=== PATIENT | male | born 1975 | race African-American/Black ===

== ENCOUNTER 2022-07-13 21:07 | Emergency (ER) | payer BC ==
[~2022-07-13] VITALS: Ht 182.9 cm; Wt 172.4 kg
[2022-07-13] MEDS ORDERED: ACETAMINOPHEN 325 MG TAB PO ONE (21:45)
[2022-07-13] MEDS ORDERED: PAXLOVID 300-11 EACH PO (22:52)
== END 2022-07-13 23:32 | disposition home or self-care (01) ==
LOC: EDBD 21:07 → ER 21:15
DX: R50.9 Fever, unspecified (principal); U07.1 COVID-19; I10 Essential (primary) hypertension; E11.9 Type 2 diabetes mellitus without complications; R05.9 Cough, unspecified
CPT/HCPCS: 71046; 99283; U0002

== ENCOUNTER 2022-07-16 12:23 | Inpatient (IN) | payer BC ==
[~2022-07-16] VITALS: Ht 182.9 cm; Wt 174.2 kg
[~2022-07-16 12:23] MED LIST: PAXLOVID 300-11 EACH PO
[2022-07-16] MEDS ORDERED: SODIUM CHLORIDE 0.9% 1000ML 1,000 ML IV STA (13:06)
[2022-07-16 13:22] LABS: BASOPHILS # (AUTO) 0.1 (0.0-0.1); BASOPHILS % 0.7 % (0.0-1.0); HEMATOCRIT 38.5 % (38.2-49.6); HEMOGLOBIN 12.6 g/dL (14.0-18.0); LYMPHOCYTES # (AUTO) 0.3 (1.0-3.2); LYMPHOCYTES % 2.2 % (18.0-39.1); MEAN CORPUSCULAR HEMOGLOBIN 25.5 pg (28-32); MEAN CORPUSCULAR HGB CONC 32.7 g/dL (31-35); MEAN CORPUSCULAR VOLUME 77.9 fL (81-99); MONOCYTES % 8.2 % (4.4-11.3); NEUTROPHILS # (AUTO) 10.7 (2.1-6.9); NEUTROPHILS % 88.4 % (38.7-80.0); PLATELET COUNT 168 x10e3/uL (140-360); RED BLOOD COUNT 4.94 x10e6/uL (4.3-5.7); RED CELL DISTRIBUTION WIDTH 14.8 % (11.7-14.4)
[2022-07-16 13:36] LABS: INR 1.62; PROTHROMBIN TIME 19.4 seconds (11.9-14.5)
[2022-07-16 13:37] LABS: PARTIAL THROMBOPLASTIN TIME 42.3 seconds (23.8-35.5)
[2022-07-16 13:49] LABS: ALBUMIN 2.6 g/dL (3.5-5.0); ALBUMIN/GLOBULIN RATIO 0.4 (0.8-2.0); ANION GAP 17.5 mmol/L (8-16); CALCIUM 9.5 mg/dL (8.4-10.2); CREATININE, SERUM 0.99 mg/dL (0.72-1.25); MAGNESIUM 1.9 MG/DL (1.3-2.1); POTASSIUM 3.5 mmol/L (3.5-5.1)
[2022-07-16 13:55] LABS: CREATINE KINASE MB 0.5 ng/mL (0-5.0)
[2022-07-16 14:37] LABS: ABG HCO3 27 mmol/L (22-26); ABG PCO2 40 mmHg (35-45); ABG PH 7.44 (7.35-7.45); ABG PO2 67 mmHg (80-105); ABG TCO2 28
[2022-07-16] MEDS ORDERED: DEXTROSE 50% SYRINGE 50 ML IV PRN (15:15)
[2022-07-16] MEDS ORDERED: INSULIN REGULAR, HUMAN 100 UNIT/1 ML IV ONE (15:15)
[2022-07-16] MEDS ORDERED: ONDANSETRON HCL INJ 2MG/ML 2ML 2 MG/ML VIAL IV PRN (15:15)
[2022-07-16 15:17] LABS: BAND NEUTROPHILS % (MANUAL) 7 %; LYMPHOCYTES % (MANUAL) 1 % (19-48); MONOCYTES % (MANUAL) 8 % (3.4-9.0); NEUTROPHILS % (MANUAL) 84 % (40-74)
[2022-07-16 15:24] LABS: PLATELET ESTIMATE ADEQUATE; PLATELET MORPHOLOGY COMMENT NORMAL
[2022-07-16 15:45] LABS: INR 1.63; PARTIAL THROMBOPLASTIN TIME 40.6 seconds (23.8-35.5); PROTHROMBIN TIME 19.5 seconds (11.9-14.5)
[2022-07-16] MEDS: SODIUM CHLORIDE 0.9% 1000ML 1,000 ML IV SCH ×2 (15:46→23:30)
[2022-07-16] MEDS: DEXAMETHASONE SOD PHOS 10 MG/1 ML VIAL IV SCH (15:46)
[2022-07-16] MEDS ORDERED: POTASSIUM CHLORIDE 20MEQ/100ML 200 ML IV ONE ×2 (16:15→20:00)
[2022-07-16 16:28] LABS: SALICYLATE < 5.0 mg/dL (0-30)
[2022-07-16] MEDS ORDERED: REMDESIVIR 100MG 200 MG in SODIUM CHLORIDE 0.9% 100 ML IV ONE (16:30)
[2022-07-16] MEDS: ASCORBIC ACID 500 MG TAB PO SCH (16:33)
[2022-07-16] MEDS: ENOXAPARIN SOD INJ 40 MG/0.4 ML SYR SC SCH (16:33)
[2022-07-16] MEDS: INSULIN LISPRO 100 UNIT/1 ML 3ML VIAL SQ SCH ×2 (16:43→21:00)
[2022-07-16 17:15] LABS: MAGNESIUM 1.9 MG/DL (1.3-2.1)
[2022-07-16 17:25] LABS: HIV 1&2 AB SCREEN NON-REACTIVE (NONREACTIVE)
[2022-07-16 17:35] LABS: THYROID STIMULATING HORMONE 0.535 uIU/mL (0.350-4.940)
[2022-07-16 18:50] LABS: AMPHETAMINES SCREEN,URINE NEGATIVE (NEGATIVE); BENZODIAZEPINES SCREEN,URINE NEGATIVE (NEGATIVE); PHENCYCLIDINE SCREEN,URINE NEGATIVE (NEGATIVE)
[2022-07-16 18:51] LABS: CLARITY,URINE CLEAR (CLEAR); COLOR,URINE YELLOW (YELLOW); LEUKOCYTE ESTERASE ,URINE NEGATIVE (NEGATIVE); NITRITE,URINE NEGATIVE (NEGATIVE)
[2022-07-16 18:52] LABS: KETONES,URINE 1+ (NEGATIVE); PROTEIN,URINE DIPSTICK >=300 (NEGATIVE)
[2022-07-16 19:06] LABS: BACTERIA,URINE MODERATE /HPF; EPITHELIAL CELLS,URINE FEW /LPF
[2022-07-16 19:27] LABS: CREATINE KINASE MB 0.7 ng/mL (0-5.0)
[2022-07-16 20:11] VITALS: BP 168/84
[2022-07-16 20:30] VITALS: BP 176/86
[2022-07-16 20:53] VITALS: BP 172/96
[2022-07-16 20:58] VITALS: BP 172/96
[2022-07-16] MEDS ORDERED: ZIPRASIDONE 20 MG VIAL IM STA (21:22)
[2022-07-16] MEDS ORDERED: LORAZEPAM 1 MG TAB PO PRN (21:30)
[2022-07-16 23:00] VITALS: BP 110/70
[2022-07-17] VITALS (20 sets, daily range): BP systolic 117–211; BP diastolic 46–165
[2022-07-17 06:40] LABS: BASOPHILS # (AUTO) 0.1 (0.0-0.1); BASOPHILS % 0.6 % (0.0-1.0); HEMATOCRIT 36.1 % (38.2-49.6); LYMPHOCYTES # (AUTO) 0.5 (1.0-3.2); LYMPHOCYTES % 3.6 % (18.0-39.1); MEAN CORPUSCULAR HEMOGLOBIN 25.7 pg (28-32); MEAN CORPUSCULAR HGB CONC 33.2 g/dL (31-35); MEAN CORPUSCULAR VOLUME 77.3 fL (81-99); MONOCYTES # (AUTO) 1.3 (0.2-0.8); NEUTROPHILS # (AUTO) 12.2 (2.1-6.9); NEUTROPHILS % 85.1 % (38.7-80.0); PLATELET COUNT 154 x10e3/uL (140-360); RED BLOOD COUNT 4.67 x10e6/uL (4.3-5.7); RED CELL DISTRIBUTION WIDTH 14.8 % (11.7-14.4)
[2022-07-17 07:01] LABS: INR 1.57
[2022-07-17 07:02] LABS: PARTIAL THROMBOPLASTIN TIME 42.5 seconds (23.8-35.5)
[2022-07-17] MEDS: SODIUM CHLORIDE 0.9% 1000ML 1,000 ML IV SCH ×3 (07:15→23:51)
[2022-07-17 07:19] LABS: CREATINE KINASE MB 0.6 ng/mL (0-5.0)
[2022-07-17] MEDS: INSULIN LISPRO 100 UNIT/1 ML 3ML VIAL SQ SCH ×4 (07:30→21:58)
[2022-07-17 07:55] LABS: ALBUMIN 2.2 g/dL (3.5-5.0); ALBUMIN/GLOBULIN RATIO 0.3 (0.8-2.0); ANION GAP 18.6 mmol/L (8-16); CALCIUM 9.3 mg/dL (8.4-10.2); CHOL/HDL RATIO 10.7 (3.9-4.7); CREATININE, SERUM 0.83 mg/dL (0.72-1.25); POTASSIUM 3.6 mmol/L (3.5-5.1)
[2022-07-17] MEDS: ZINC SULFATE 50 MG CAP PO SCH (09:00)
[2022-07-17] MEDS: ASCORBIC ACID 500 MG TAB PO SCH ×2 (09:00→16:46)
[2022-07-17] MEDS: DEXAMETHASONE SOD PHOS 10 MG/1 ML VIAL IV SCH (09:13)
[2022-07-17] MEDS: HYDRALAZINE HCL 20 MG/ML VIAL IV PRN ×2 (09:14→17:19)
[2022-07-17 09:33] LABS: BAND NEUTROPHILS % (MANUAL) 3 %; LYMPHOCYTES % (MANUAL) 7 % (19-48); MONOCYTES % (MANUAL) 11 % (3.4-9.0); NEUTROPHILS % (MANUAL) 78 % (40-74)
[2022-07-17 09:34] LABS: PLATELET ESTIMATE ADEQUATE; PLATELET MORPHOLOGY COMMENT NORMAL; RBC MORPHOLOGY COMMENT NORMAL; VACUOLE,WBC SLIGHT
[2022-07-17] MEDS: ENOXAPARIN SOD INJ 40 MG/0.4 ML SYR SC SCH ×2 (09:49→17:00)
[2022-07-17] MEDS ORDERED: KETOROLAC TROMETHAMINE 30 MG/ML VIAL IV ONE (11:30)
[2022-07-17] MEDS: ACETAMINOPHEN 650 MG SUPP PR PRN (12:26)
[2022-07-17] MEDS ORDERED: Vancomycin IV 2 GM in SODIUM CHLORIDE 0.9% 500ML 500 ML IV ONE (12:48)
[2022-07-17] MEDS ORDERED: CEFTRIAXONE 2 GM in SODIUM CHLORIDE 0.9% 100 ML IV SCH (13:00)
[2022-07-17] MEDS ORDERED: SODIUM CHLORIDE 0.9% 500ML 500 ML ONE (13:15)
[2022-07-17] MEDS ORDERED: LIDOCAINE 1% 10 ML MULTIDOSE VIAL IJ ONE (13:32)
[2022-07-17] MEDS ORDERED: ACYCLOVIR SODIUM INJ 1,000 MG in SODIUM CHLORIDE 0.9% 250ML 250 ML IV SCH (14:00)
[2022-07-17 15:53] LABS: APPEARANCE,CSF HAZY (CLEAR); COLOR,CSF XANTHOCHROMIC (COLORLESS); TUBE NUMBER 3
[2022-07-17 16:24] LABS: WHITE BLOOD CELL,CSF 2680 cells/uL (0-5)
[2022-07-17] MEDS: ACYCLOVIR SODIUM INJ 1,000 MG in SODIUM CHLORIDE 0.9% 250ML 250 ML IV SCH ×2 (16:39→23:52)
[2022-07-17] MEDS: REMDESIVIR 100MG 100 MG in SODIUM CHLORIDE 0.9% 100 ML IV SCH (16:46)
[2022-07-17 16:58] LABS: LYMPHOCYTES,CSF 6 % (40-80); MONOCYTES,CSF 10 %; NEUTROPHILS,CSF 80 % (0-6); OTHER CELLS,CSF 4 %
[2022-07-17] MEDS ORDERED: LEVETIRACETAM 500MG/5ML VIAL 1,000 MG in SODIUM CHLORIDE 0.9% 100 ML IV ONE (19:45)
[2022-07-17] MEDS ORDERED: SODIUM CHLORIDE 0.9% 100 ML ONE (20:18)
[2022-07-17] MEDS: LEVETIRACETAM 500MG/5ML VIAL 1,500 MG in SODIUM CHLORIDE 0.9% 100 ML IV SCH (20:22)
[2022-07-17] MEDS: CEFTRIAXONE 2 GM in SODIUM CHLORIDE 0.9% 100 ML IV SCH (20:23)
[2022-07-17] MEDS: Vancomycin IV 2 GM in SODIUM CHLORIDE 0.9% 500ML 500 ML IV SCH (23:52)
[2022-07-18] VITALS (14 sets, daily range): BP systolic 152–190; BP diastolic 83–108
[2022-07-18 06:04] LABS: BASOPHILS % 0.1 % (0.0-1.0); HEMATOCRIT 36.4 % (38.2-49.6); HEMOGLOBIN 11.4 g/dL (14.0-18.0); LYMPHOCYTES % 6.1 % (18.0-39.1); MEAN CORPUSCULAR HEMOGLOBIN 25.8 pg (28-32); MEAN CORPUSCULAR HGB CONC 31.3 g/dL (31-35); MEAN CORPUSCULAR VOLUME 82.4 fL (81-99); MONOCYTES # (AUTO) 1.3 (0.2-0.8); MONOCYTES % 8.1 % (4.4-11.3); NEUTROPHILS # (AUTO) 13.5 (2.1-6.9); PLATELET COUNT 163 x10e3/uL (140-360); RED BLOOD COUNT 4.42 x10e6/uL (4.3-5.7); RED CELL DISTRIBUTION WIDTH 15.4 % (11.7-14.4)
[2022-07-18] MEDS: HYDRALAZINE HCL 20 MG/ML VIAL IV PRN ×3 (06:09→20:54)
[2022-07-18 06:33] LABS: ALBUMIN 1.7 g/dL (3.5-5.0); ALBUMIN/GLOBULIN RATIO 0.3 (0.8-2.0); ANION GAP 15.7 mmol/L (8-16); CALCIUM 8.4 mg/dL (8.4-10.2); CREATININE, SERUM 0.77 mg/dL (0.72-1.25); MAGNESIUM 2.1 MG/DL (1.3-2.1); PHOSPHORUS 3.3 MG/DL (2.3-4.7); POTASSIUM 3.7 mmol/L (3.5-5.1)
[2022-07-18 07:44] LABS: LYMPHOCYTES % (MANUAL) 7 % (19-48); MONOCYTES % (MANUAL) 5 % (3.4-9.0); NEUTROPHILS % (MANUAL) 87 % (40-74)
[2022-07-18 07:45] LABS: PLATELET ESTIMATE ADEQUATE; PLATELET MORPHOLOGY COMMENT NORMAL; RBC MORPHOLOGY COMMENT NORMAL
[2022-07-18] MEDS: ZINC SULFATE 50 MG CAP PO SCH (07:57)
[2022-07-18] MEDS: ASCORBIC ACID 500 MG TAB PO SCH ×2 (07:57→17:00)
[2022-07-18] MEDS: DEXAMETHASONE SOD PHOS 10 MG/1 ML VIAL IV SCH (08:17)
[2022-07-18] MEDS: ACYCLOVIR SODIUM INJ 1,000 MG in SODIUM CHLORIDE 0.9% 250ML 250 ML IV SCH (08:19)
[2022-07-18] MEDS: INSULIN LISPRO 100 UNIT/1 ML 3ML VIAL SQ SCH ×4 (08:21→21:00)
[2022-07-18 08:44] LABS: ABG HCO3 29 mmol/L (22-26); ABG PCO2 45 mmHg (35-45); ABG PH 7.41 (7.35-7.45); ABG PO2 83 mmHg (80-105); ABG TCO2 30
[2022-07-18] MEDS: CEFTRIAXONE 2 GM in SODIUM CHLORIDE 0.9% 100 ML IV SCH ×2 (12:29→20:53)
[2022-07-18] MEDS: Vancomycin IV 2 GM in SODIUM CHLORIDE 0.9% 500ML 500 ML IV SCH (12:29)
[2022-07-18] MEDS: LEVETIRACETAM 500MG/5ML VIAL 1,500 MG in SODIUM CHLORIDE 0.9% 100 ML IV SCH ×2 (12:49→20:53)
[2022-07-18] MEDS: SODIUM CHLORIDE 0.9% 1000ML 1,000 ML IV SCH ×3 (12:49→23:15)
[2022-07-18] MEDS: REMDESIVIR 100MG 100 MG in SODIUM CHLORIDE 0.9% 100 ML IV SCH (15:45)
[2022-07-18] MEDS: DEXAMETHASONE SOD PHOS INJ 4 MG/ML SDV IV SCH ×2 (15:52→18:34)
[2022-07-18] MEDS: ENOXAPARIN SOD INJ 40 MG/0.4 ML SYR SC SCH (20:54)
[2022-07-19] VITALS (18 sets, daily range): BP systolic 149–173; BP diastolic 83–109
[2022-07-19] MEDS: DEXAMETHASONE SOD PHOS INJ 4 MG/ML SDV IV SCH ×5 (00:58→23:13)
[2022-07-19] MEDS: Vancomycin IV 2 GM in SODIUM CHLORIDE 0.9% 500ML 500 ML IV SCH ×3 (00:59→23:13)
[2022-07-19] MEDS ORDERED: SODIUM CHLORIDE 0.9% 500ML 500 ML ONE (01:09)
[2022-07-19 06:29] LABS: BASOPHILS % 0.3 % (0.0-1.0); EOSINOPHILS % 0.1 % (0.0-6.0); HEMATOCRIT 41.9 % (38.2-49.6); LYMPHOCYTES % 8.2 % (18.0-39.1); MEAN CORPUSCULAR HEMOGLOBIN 25.5 pg (28-32); MEAN CORPUSCULAR VOLUME 82.3 fL (81-99); MONOCYTES # (AUTO) 0.7 (0.2-0.8); MONOCYTES % 5.6 % (4.4-11.3); NEUTROPHILS # (AUTO) 9.9 (2.1-6.9); NEUTROPHILS % 83.7 % (38.7-80.0); PLATELET COUNT 201 x10e3/uL (140-360); RED BLOOD COUNT 5.09 x10e6/uL (4.3-5.7); RED CELL DISTRIBUTION WIDTH 15.6 % (11.7-14.4)
[2022-07-19 06:53] LABS: ALBUMIN 1.8 g/dL (3.5-5.0); ALBUMIN/GLOBULIN RATIO 0.3 (0.8-2.0); ANION GAP 18.2 mmol/L (8-16); CREATININE, SERUM 0.87 mg/dL (0.72-1.25); POTASSIUM 4.2 mmol/L (3.5-5.1)
[2022-07-19 07:19] LABS: BAND NEUTROPHILS % (MANUAL) 1 %; LYMPHOCYTES % (MANUAL) 9 % (19-48); MONOCYTES % (MANUAL) 7 % (3.4-9.0); NEUTROPHILS % (MANUAL) 83 % (40-74)
[2022-07-19 07:20] LABS: PLATELET ESTIMATE ADEQUATE; PLATELET MORPHOLOGY COMMENT NORMAL; RBC MORPHOLOGY COMMENT NORMAL
[2022-07-19] MEDS: SODIUM CHLORIDE 0.9% 1000ML 1,000 ML IV SCH (07:43)
[2022-07-19] MEDS: ZINC SULFATE 50 MG CAP PO SCH (07:43)
[2022-07-19] MEDS: INSULIN LISPRO 100 UNIT/1 ML 3ML VIAL SQ SCH (07:43)
[2022-07-19] MEDS: ASCORBIC ACID 500 MG TAB PO SCH ×2 (07:43→15:33)
[2022-07-19] MEDS: LEVETIRACETAM 500MG/5ML VIAL 1,500 MG in SODIUM CHLORIDE 0.9% 100 ML IV SCH ×2 (07:53→21:48)
[2022-07-19] MEDS: CEFTRIAXONE 2 GM in SODIUM CHLORIDE 0.9% 100 ML IV SCH ×2 (07:53→20:09)
[2022-07-19] MEDS: ENOXAPARIN SOD INJ 40 MG/0.4 ML SYR SC SCH ×2 (07:53→20:09)
[2022-07-19] MEDS ORDERED: INSULIN REGULAR IN 0.9 % NACL 100 ML IV PRN (08:15)
[2022-07-19] MEDS ORDERED: DEXTROSE 50% SYRINGE 50 ML IV PRN (08:15)
[2022-07-19] MEDS: INSULIN REGULAR, HUMAN 3ML VL 100 UNIT in SODIUM CHLORIDE 0.9% 99 ML IV PRN ×2 (09:05)
[2022-07-19] MEDS: SODIUM CHLORIDE 0.45% 1,000 ML IV SCH ×2 (09:05→17:36)
[2022-07-19] MEDS ORDERED: IOPAMIDOL 370 MG/ML 100 ML INFUS..BTL INJ ONE (11:40)
[2022-07-19] MEDS: REMDESIVIR 100MG 100 MG in SODIUM CHLORIDE 0.9% 100 ML IV SCH (13:36)
[2022-07-19] MEDS: HYDRALAZINE HCL 20 MG/ML VIAL IV PRN (15:30)
[2022-07-20] VITALS (37 sets, daily range): BP systolic 143–191; BP diastolic 83–117
[2022-07-20] MEDS: HYDRALAZINE HCL 20 MG/ML VIAL IV PRN ×5 (01:05→21:30)
[2022-07-20] MEDS: SODIUM CHLORIDE 0.45% 1,000 ML IV SCH ×3 (05:36→19:45)
[2022-07-20] MEDS: DEXAMETHASONE SOD PHOS INJ 4 MG/ML SDV IV SCH ×4 (05:36→23:52)
[2022-07-20 05:55] LABS: BASOPHILS % 0.3 % (0.0-1.0); HEMATOCRIT 42.5 % (38.2-49.6); HEMOGLOBIN 13.4 g/dL (14.0-18.0); LYMPHOCYTES # (AUTO) 0.9 (1.0-3.2); LYMPHOCYTES % 9.2 % (18.0-39.1); MEAN CORPUSCULAR HEMOGLOBIN 25.5 pg (28-32); MEAN CORPUSCULAR HGB CONC 31.5 g/dL (31-35); MONOCYTES # (AUTO) 0.9 (0.2-0.8); MONOCYTES % 9.3 % (4.4-11.3); NEUTROPHILS # (AUTO) 7.2 (2.1-6.9); NEUTROPHILS % 77.5 % (38.7-80.0); PLATELET COUNT 262 x10e3/uL (140-360); RED BLOOD COUNT 5.25 x10e6/uL (4.3-5.7); RED CELL DISTRIBUTION WIDTH 15.6 % (11.7-14.4)
[2022-07-20 06:19] LABS: ALBUMIN 1.8 g/dL (3.5-5.0); ALBUMIN/GLOBULIN RATIO 0.3 (0.8-2.0); CALCIUM 8.8 mg/dL (8.4-10.2); CREATININE, SERUM 0.9 mg/dL (0.72-1.25)
[2022-07-20] MEDS: ZINC SULFATE 50 MG CAP PO SCH (07:44)
[2022-07-20] MEDS: ASCORBIC ACID 500 MG TAB PO SCH ×2 (07:44→15:15)
[2022-07-20] MEDS: ENOXAPARIN SOD INJ 40 MG/0.4 ML SYR SC SCH ×2 (08:14→19:32)
[2022-07-20] MEDS: CEFTRIAXONE 2 GM in SODIUM CHLORIDE 0.9% 100 ML IV SCH ×2 (08:14→19:32)
[2022-07-20] MEDS: LEVETIRACETAM 500MG/5ML VIAL 1,500 MG in SODIUM CHLORIDE 0.9% 100 ML IV SCH ×2 (08:14→19:32)
[2022-07-20] MEDS: INSULIN REGULAR, HUMAN 3ML VL 100 UNIT in SODIUM CHLORIDE 0.9% 99 ML IV PRN ×2 (08:15)
[2022-07-20 11:02] LABS: BAND NEUTROPHILS % (MANUAL) 1 %; LYMPHOCYTES % (MANUAL) 7 % (19-48); METAMYELOCYTES % (MANUAL) 3 % (0-0); MONOCYTES % (MANUAL) 5 % (3.4-9.0); NEUTROPHILS % (MANUAL) 83 % (40-74); PLATELET ESTIMATE ADEQUATE; PLATELET MORPHOLOGY COMMENT NORMAL
[2022-07-20] MEDS: Vancomycin IV 2 GM in SODIUM CHLORIDE 0.9% 500ML 500 ML IV SCH ×2 (11:55→23:53)
[2022-07-20] MEDS: REMDESIVIR 100MG 100 MG in SODIUM CHLORIDE 0.9% 100 ML IV SCH (13:47)
[2022-07-21] VITALS (54 sets, daily range): BP systolic 143–188; BP diastolic 82–142
[2022-07-21] MEDS: DEXAMETHASONE SOD PHOS INJ 4 MG/ML SDV IV SCH (05:03)
[2022-07-21] MEDS: HYDRALAZINE HCL 20 MG/ML VIAL IV PRN (05:03)
[2022-07-21] MEDS: SODIUM CHLORIDE 0.45% 1,000 ML IV SCH ×3 (06:15→20:13)
[2022-07-21 06:44] LABS: BASOPHILS % 0.2 % (0.0-1.0); HEMATOCRIT 42.7 % (38.2-49.6); LYMPHOCYTES # (AUTO) 0.7 (1.0-3.2); LYMPHOCYTES % 7.6 % (18.0-39.1); MEAN CORPUSCULAR HEMOGLOBIN 25.3 pg (28-32); MEAN CORPUSCULAR HGB CONC 30.4 g/dL (31-35); MEAN CORPUSCULAR VOLUME 83.1 fL (81-99); MONOCYTES # (AUTO) 0.9 (0.2-0.8); MONOCYTES % 9.4 % (4.4-11.3); NEUTROPHILS # (AUTO) 7.6 (2.1-6.9); NEUTROPHILS % 79.6 % (38.7-80.0); PLATELET COUNT 242 x10e3/uL (140-360); RED BLOOD COUNT 5.14 x10e6/uL (4.3-5.7); RED CELL DISTRIBUTION WIDTH 15.9 % (11.7-14.4)
[2022-07-21 07:15] LABS: ALBUMIN 1.8 g/dL (3.5-5.0); ALBUMIN/GLOBULIN RATIO 0.3 (0.8-2.0); ANION GAP 12.1 mmol/L (8-16); CALCIUM 8.5 mg/dL (8.4-10.2); CREATININE, SERUM 0.85 mg/dL (0.72-1.25); POTASSIUM 4.1 mmol/L (3.5-5.1)
[2022-07-21] MEDS: CEFTRIAXONE 2 GM in SODIUM CHLORIDE 0.9% 100 ML IV SCH ×2 (08:24→20:05)
[2022-07-21] MEDS: LEVETIRACETAM 500MG/5ML VIAL 1,500 MG in SODIUM CHLORIDE 0.9% 100 ML IV SCH ×2 (08:24→20:05)
[2022-07-21] MEDS: ZINC SULFATE 50 MG CAP PO SCH (08:24)
[2022-07-21] MEDS: ASCORBIC ACID 500 MG TAB PO SCH ×2 (08:24→16:21)
[2022-07-21] MEDS: ENOXAPARIN SOD INJ 40 MG/0.4 ML SYR SC SCH ×2 (08:24→20:05)
[2022-07-21] MEDS ORDERED: LABETALOL HCL 5 MG/ML 20ML VIAL IV STA (08:38)
[2022-07-21 08:42] LABS: ABG HCO3 34 mmol/L (22-26); ABG PCO2 48 mmHg (35-45); ABG PH 7.46 (7.35-7.45); ABG PO2 121 mmHg (80-105); ABG TCO2 35
[2022-07-21] MEDS ORDERED: ETOMIDATE 2 MG/ML 10 ML INJ IV STA (08:57)
[2022-07-21] MEDS: INSULIN REGULAR, HUMAN 3ML VL 100 UNIT in SODIUM CHLORIDE 0.9% 99 ML IV PRN ×2 (13:12)
[2022-07-21] MEDS ORDERED: AMLODIPINE BESYLATE 5 MG TAB PO PRN (13:45)
[2022-07-21] MEDS: LABETALOL HCL 5 MG/ML 20ML VIAL IV PRN (20:14)
[2022-07-22] VITALS (46 sets, daily range): BP systolic 128–179; BP diastolic 75–111
[2022-07-22] MEDS: LABETALOL HCL 5 MG/ML 20ML VIAL IV PRN ×2 (04:07→09:18)
[2022-07-22 06:41] LABS: BASOPHILS % 0.2 % (0.0-1.0); HEMATOCRIT 42.1 % (38.2-49.6); HEMOGLOBIN 13.3 g/dL (14.0-18.0); LYMPHOCYTES # (AUTO) 1.1 (1.0-3.2); LYMPHOCYTES % 8.4 % (18.0-39.1); MEAN CORPUSCULAR HEMOGLOBIN 25.4 pg (28-32); MEAN CORPUSCULAR HGB CONC 31.6 g/dL (31-35); MEAN CORPUSCULAR VOLUME 80.3 fL (81-99); MONOCYTES # (AUTO) 0.8 (0.2-0.8); MONOCYTES % 6.2 % (4.4-11.3); NEUTROPHILS # (AUTO) 11.1 (2.1-6.9); NEUTROPHILS % 83.2 % (38.7-80.0); PLATELET COUNT 240 x10e3/uL (140-360); RED BLOOD COUNT 5.24 x10e6/uL (4.3-5.7); RED CELL DISTRIBUTION WIDTH 15.9 % (11.7-14.4)
[2022-07-22 07:15] LABS: ALBUMIN 1.9 g/dL (3.5-5.0); ALBUMIN/GLOBULIN RATIO 0.3 (0.8-2.0); ANION GAP 10.8 mmol/L (8-16); CALCIUM 8.6 mg/dL (8.4-10.2); CREATININE, SERUM 0.74 mg/dL (0.72-1.25); POTASSIUM 3.8 mmol/L (3.5-5.1)
[2022-07-22] MEDS: CEFTRIAXONE 2 GM in SODIUM CHLORIDE 0.9% 100 ML IV SCH ×2 (09:23→19:43)
[2022-07-22] MEDS: ENOXAPARIN SOD INJ 40 MG/0.4 ML SYR SC SCH ×2 (09:23→19:44)
[2022-07-22] MEDS: IRBESARTAN 150 MG TAB PO SCH (09:23)
[2022-07-22] MEDS: LEVETIRACETAM 500MG/5ML VIAL 1,500 MG in SODIUM CHLORIDE 0.9% 100 ML IV SCH ×2 (09:24→21:12)
[2022-07-22] MEDS: ZINC SULFATE 50 MG CAP PO SCH (09:24)
[2022-07-22] MEDS: SODIUM CHLORIDE 0.45% 1,000 ML IV SCH ×2 (09:25→15:03)
[2022-07-22] MEDS: ASCORBIC ACID 500 MG TAB PO SCH ×2 (09:26→16:40)
[2022-07-22] MEDS ORDERED: IRBESARTAN 150 MG TAB PO SCH (10:00)
[2022-07-23] VITALS (50 sets, daily range): BP systolic 105–161; BP diastolic 60–87
[2022-07-23] MEDS: SODIUM CHLORIDE 0.45% 1,000 ML IV SCH ×3 (02:06→20:02)
[2022-07-23] MEDS: INSULIN REGULAR, HUMAN 3ML VL 100 UNIT in SODIUM CHLORIDE 0.9% 99 ML IV PRN ×2 (06:40)
[2022-07-23 07:03] LABS: BASOPHILS % 0.1 % (0.0-1.0); EOSINOPHILS % 0.1 % (0.0-6.0); HEMATOCRIT 40.5 % (38.2-49.6); HEMOGLOBIN 12.4 g/dL (14.0-18.0); LYMPHOCYTES # (AUTO) 1.3 (1.0-3.2); LYMPHOCYTES % 9.2 % (18.0-39.1); MEAN CORPUSCULAR HEMOGLOBIN 25.5 pg (28-32); MEAN CORPUSCULAR HGB CONC 30.6 g/dL (31-35); MEAN CORPUSCULAR VOLUME 83.3 fL (81-99); MONOCYTES # (AUTO) 0.8 (0.2-0.8); MONOCYTES % 5.3 % (4.4-11.3); NEUTROPHILS # (AUTO) 12.3 (2.1-6.9); NEUTROPHILS % 84.1 % (38.7-80.0); PLATELET COUNT 212 x10e3/uL (140-360); RED BLOOD COUNT 4.86 x10e6/uL (4.3-5.7); RED CELL DISTRIBUTION WIDTH 15.7 % (11.7-14.4)
[2022-07-23 07:37] LABS: ALBUMIN 1.7 g/dL (3.5-5.0); ALBUMIN/GLOBULIN RATIO 0.3 (0.8-2.0); ANION GAP 11.1 mmol/L (8-16); CALCIUM 8.3 mg/dL (8.4-10.2); CREATININE, SERUM 0.65 mg/dL (0.72-1.25); POTASSIUM 4.1 mmol/L (3.5-5.1)
[2022-07-23] MEDS: ENOXAPARIN SOD INJ 40 MG/0.4 ML SYR SC SCH ×2 (08:16→20:03)
[2022-07-23] MEDS: ZINC SULFATE 50 MG CAP PO SCH (08:16)
[2022-07-23] MEDS: ASCORBIC ACID 500 MG TAB PO SCH ×2 (08:17→18:04)
[2022-07-23] MEDS: IRBESARTAN 150 MG TAB PO SCH (08:17)
[2022-07-23] MEDS: CEFTRIAXONE 2 GM in SODIUM CHLORIDE 0.9% 100 ML IV SCH ×2 (08:20→20:03)
[2022-07-23] MEDS: LEVETIRACETAM 500MG/5ML VIAL 1,500 MG in SODIUM CHLORIDE 0.9% 100 ML IV SCH ×2 (08:20→20:03)
[2022-07-24] VITALS (30 sets, daily range): BP systolic 103–146; BP diastolic 61–92
[2022-07-24 06:52] LABS: BASOPHILS % 0.2 % (0.0-1.0); EOSINOPHILS % 0.2 % (0.0-6.0); HEMATOCRIT 36.3 % (38.2-49.6); HEMOGLOBIN 11.6 g/dL (14.0-18.0); LYMPHOCYTES # (AUTO) 1.2 (1.0-3.2); LYMPHOCYTES % 9.4 % (18.0-39.1); MEAN CORPUSCULAR HEMOGLOBIN 25.2 pg (28-32); MEAN CORPUSCULAR VOLUME 78.7 fL (81-99); MONOCYTES # (AUTO) 0.8 (0.2-0.8); NEUTROPHILS % 83.1 % (38.7-80.0); PLATELET COUNT 199 x10e3/uL (140-360); RED BLOOD COUNT 4.61 x10e6/uL (4.3-5.7); RED CELL DISTRIBUTION WIDTH 15.5 % (11.7-14.4)
[2022-07-24] MEDS: SODIUM CHLORIDE 0.45% 1,000 ML IV SCH ×3 (06:52→22:31)
[2022-07-24 07:01] LABS: ALBUMIN 1.5 g/dL (3.5-5.0); ALBUMIN/GLOBULIN RATIO 0.3 (0.8-2.0); ANION GAP 11.1 mmol/L (8-16); CALCIUM 8.1 mg/dL (8.4-10.2); CREATININE, SERUM 0.73 mg/dL (0.72-1.25); POTASSIUM 4.1 mmol/L (3.5-5.1)
[2022-07-24 07:21] LABS: MAGNESIUM 2.1 MG/DL (1.3-2.1); PHOSPHORUS 2.9 MG/DL (2.3-4.7)
[2022-07-24] MEDS: LEVETIRACETAM 500MG/5ML VIAL 1,500 MG in SODIUM CHLORIDE 0.9% 100 ML IV SCH ×2 (08:36→19:57)
[2022-07-24] MEDS: ASCORBIC ACID 500 MG TAB PO SCH ×2 (08:37→16:21)
[2022-07-24] MEDS: ZINC SULFATE 50 MG CAP PO SCH (08:37)
[2022-07-24] MEDS: ENOXAPARIN SOD INJ 40 MG/0.4 ML SYR SC SCH ×2 (08:37→19:30)
[2022-07-24] MEDS: IRBESARTAN 150 MG TAB PO SCH (08:37)
[2022-07-24] MEDS: CEFTRIAXONE 2 GM in SODIUM CHLORIDE 0.9% 100 ML IV SCH ×2 (08:37→19:30)
[2022-07-24] MEDS: INSULIN REGULAR, HUMAN 3ML VL 100 UNIT in SODIUM CHLORIDE 0.9% 99 ML IV PRN ×2 (16:22)
[2022-07-25] VITALS (24 sets, daily range): BP systolic 124–154; BP diastolic 72–95
[2022-07-25 06:47] LABS: EOSINOPHILS % 0.1 % (0.0-6.0); HEMATOCRIT 34.6 % (38.2-49.6); HEMOGLOBIN 10.5 g/dL (14.0-18.0); LYMPHOCYTES # (AUTO) 1.3 (1.0-3.2); LYMPHOCYTES % 10.5 % (18.0-39.1); MEAN CORPUSCULAR HEMOGLOBIN 25.2 pg (28-32); MEAN CORPUSCULAR HGB CONC 30.3 g/dL (31-35); MONOCYTES # (AUTO) 0.9 (0.2-0.8); MONOCYTES % 7.5 % (4.4-11.3); NEUTROPHILS # (AUTO) 9.7 (2.1-6.9); NEUTROPHILS % 81.1 % (38.7-80.0); PLATELET COUNT 229 x10e3/uL (140-360); RED BLOOD COUNT 4.17 x10e6/uL (4.3-5.7); RED CELL DISTRIBUTION WIDTH 15.5 % (11.7-14.4)
[2022-07-25 07:09] LABS: ALBUMIN 1.4 g/dL (3.5-5.0); ALBUMIN/GLOBULIN RATIO 0.3 (0.8-2.0); CALCIUM 7.6 mg/dL (8.4-10.2); CREATININE, SERUM 0.64 mg/dL (0.72-1.25)
[2022-07-25] MEDS: ENOXAPARIN SOD INJ 40 MG/0.4 ML SYR SC SCH (08:27)
[2022-07-25] MEDS: ASCORBIC ACID 500 MG TAB PO SCH ×2 (08:27→16:15)
[2022-07-25] MEDS: ZINC SULFATE 50 MG CAP PO SCH (08:27)
[2022-07-25] MEDS: CEFTRIAXONE 2 GM in SODIUM CHLORIDE 0.9% 100 ML IV SCH ×2 (08:28→19:47)
[2022-07-25] MEDS: IRBESARTAN 150 MG TAB PO SCH (08:28)
[2022-07-25] MEDS: LEVETIRACETAM 500MG/5ML VIAL 1,500 MG in SODIUM CHLORIDE 0.9% 100 ML IV SCH ×2 (08:33→19:48)
[2022-07-25] MEDS: SODIUM CHLORIDE 0.45% 1,000 ML IV SCH ×2 (16:15→22:13)
[2022-07-26] VITALS (25 sets, daily range): BP systolic 88–160; BP diastolic 69–93
[2022-07-26] MEDS: INSULIN REGULAR, HUMAN 3ML VL 100 UNIT in SODIUM CHLORIDE 0.9% 99 ML IV PRN ×2 (02:59)
[2022-07-26] MEDS: SODIUM CHLORIDE 0.45% 1,000 ML IV SCH ×2 (03:08→17:28)
[2022-07-26 07:05] LABS: BASOPHILS % 0.1 % (0.0-1.0); EOSINOPHILS % 0.1 % (0.0-6.0); HEMATOCRIT 31.8 % (38.2-49.6); HEMOGLOBIN 10.3 g/dL (14.0-18.0); LYMPHOCYTES # (AUTO) 0.9 (1.0-3.2); LYMPHOCYTES % 7.4 % (18.0-39.1); MEAN CORPUSCULAR HEMOGLOBIN 25.6 pg (28-32); MEAN CORPUSCULAR HGB CONC 32.4 g/dL (31-35); MEAN CORPUSCULAR VOLUME 78.9 fL (81-99); MONOCYTES # (AUTO) 1.3 (0.2-0.8); MONOCYTES % 10.6 % (4.4-11.3); NEUTROPHILS # (AUTO) 9.7 (2.1-6.9); PLATELET COUNT 251 x10e3/uL (140-360); RED BLOOD COUNT 4.03 x10e6/uL (4.3-5.7)
[2022-07-26 07:24] LABS: ALBUMIN 1.2 g/dL (3.5-5.0); ALBUMIN/GLOBULIN RATIO 0.2 (0.8-2.0); ANION GAP 7.8 mmol/L (8-16); CREATININE, SERUM 0.56 mg/dL (0.72-1.25); POTASSIUM 3.8 mmol/L (3.5-5.1)
[2022-07-26 07:26] LABS: CALCIUM 6.7 mg/dL (8.4-10.2)
[2022-07-26] MEDS: ZINC SULFATE 50 MG CAP PO SCH (08:05)
[2022-07-26] MEDS: ASCORBIC ACID 500 MG TAB PO SCH ×2 (08:05→17:28)
[2022-07-26] MEDS: IRBESARTAN 150 MG TAB PO SCH (08:05)
[2022-07-26] MEDS: LEVETIRACETAM 500MG/5ML VIAL 1,500 MG in SODIUM CHLORIDE 0.9% 100 ML IV SCH ×2 (08:06→20:23)
[2022-07-26] MEDS: CEFTRIAXONE 2 GM in SODIUM CHLORIDE 0.9% 100 ML IV SCH ×2 (08:06→20:22)
[2022-07-26] MEDS: HYDRALAZINE HCL 20 MG/ML VIAL IV PRN (15:47)
[2022-07-26] MEDS: ACETAMINOPHEN 650 MG SUPP PR PRN (20:23)
[2022-07-27] VITALS (28 sets, daily range): BP systolic 139–173; BP diastolic 69–97
[2022-07-27] MEDS: HYDRALAZINE HCL 20 MG/ML VIAL IV PRN (02:33)
[2022-07-27] MEDS: SODIUM CHLORIDE 0.45% 1,000 ML IV SCH (04:11)
[2022-07-27 06:43] LABS: BASOPHILS % 0.1 % (0.0-1.0); EOSINOPHILS % 0.1 % (0.0-6.0); HEMATOCRIT 31.6 % (38.2-49.6); HEMOGLOBIN 9.7 g/dL (14.0-18.0); LYMPHOCYTES # (AUTO) 0.8 (1.0-3.2); LYMPHOCYTES % 6.7 % (18.0-39.1); MEAN CORPUSCULAR HEMOGLOBIN 25.3 pg (28-32); MEAN CORPUSCULAR HGB CONC 30.7 g/dL (31-35); MEAN CORPUSCULAR VOLUME 82.5 fL (81-99); MONOCYTES # (AUTO) 1.4 (0.2-0.8); MONOCYTES % 11.1 % (4.4-11.3); NEUTROPHILS # (AUTO) 9.9 (2.1-6.9); NEUTROPHILS % 81.5 % (38.7-80.0); PLATELET COUNT 287 x10e3/uL (140-360); RED BLOOD COUNT 3.83 x10e6/uL (4.3-5.7); RED CELL DISTRIBUTION WIDTH 15.3 % (11.7-14.4)
[2022-07-27 07:04] LABS: ALBUMIN 1.3 g/dL (3.5-5.0); ALBUMIN/GLOBULIN RATIO 0.2 (0.8-2.0); ANION GAP 10.8 mmol/L (8-16); CALCIUM 7.2 mg/dL (8.4-10.2); CREATININE, SERUM 0.54 mg/dL (0.72-1.25); POTASSIUM 3.8 mmol/L (3.5-5.1)
[2022-07-27] MEDS ORDERED: SODIUM CHLORIDE 0.9% 1000ML 1,000 ML IV ONE (08:15)
[2022-07-27] MEDS: IRBESARTAN 150 MG TAB PO SCH (08:21)
[2022-07-27] MEDS: ZINC SULFATE 50 MG CAP PO SCH (08:21)
[2022-07-27] MEDS: ASCORBIC ACID 500 MG TAB PO SCH ×2 (08:21→17:54)
[2022-07-27] MEDS: CEFTRIAXONE 2 GM in SODIUM CHLORIDE 0.9% 100 ML IV SCH ×2 (08:21→20:10)
[2022-07-27] MEDS: LEVETIRACETAM 500MG/5ML VIAL 1,500 MG in SODIUM CHLORIDE 0.9% 100 ML IV SCH ×2 (09:31→20:10)
[2022-07-27] MEDS: LABETALOL HCL 5 MG/ML 20ML VIAL IV PRN (10:52)
[2022-07-27] MEDS: INSULIN REGULAR, HUMAN 3ML VL 100 UNIT in SODIUM CHLORIDE 0.9% 99 ML IV PRN ×2 (19:25)
[2022-07-27] MEDS: ACETAMINOPHEN 325 MG/10 ML UDC NG PRN (20:12)
[2022-07-28] VITALS (7 sets, daily range): BP systolic 113–171; BP diastolic 71–93
[2022-07-28] MEDS: ACETAMINOPHEN 325 MG/10 ML UDC NG PRN (02:05)
[2022-07-28] MEDS: HYDRALAZINE HCL 20 MG/ML VIAL IV PRN (02:22)
[2022-07-28 07:41] LABS: BASOPHILS % 0.2 % (0.0-1.0); EOSINOPHILS % 0.1 % (0.0-6.0); HEMATOCRIT 35.1 % (38.2-49.6); HEMOGLOBIN 10.8 g/dL (14.0-18.0); LYMPHOCYTES % 7.8 % (18.0-39.1); MEAN CORPUSCULAR HEMOGLOBIN 25.5 pg (28-32); MEAN CORPUSCULAR HGB CONC 30.8 g/dL (31-35); MONOCYTES # (AUTO) 1.6 (0.2-0.8); MONOCYTES % 12.7 % (4.4-11.3); NEUTROPHILS # (AUTO) 9.7 (2.1-6.9); NEUTROPHILS % 78.9 % (38.7-80.0); PLATELET COUNT 363 x10e3/uL (140-360); RED BLOOD COUNT 4.23 x10e6/uL (4.3-5.7); RED CELL DISTRIBUTION WIDTH 15.6 % (11.7-14.4)
[2022-07-28 07:58] LABS: ALBUMIN 1.5 g/dL (3.5-5.0); ANION GAP 14.4 mmol/L (8-16); CALCIUM 8.8 mg/dL (8.4-10.2); CREATININE, SERUM 0.67 mg/dL (0.72-1.25)
[2022-07-28 07:59] LABS: ALBUMIN/GLOBULIN RATIO 0.2 (0.8-2.0)
[2022-07-28 08:02] LABS: POTASSIUM 5.4 mmol/L (3.5-5.1)
[2022-07-28] MEDS: ZINC SULFATE 50 MG CAP PO SCH (09:26)
[2022-07-28] MEDS: ASCORBIC ACID 500 MG TAB PO SCH (09:27)
[2022-07-28] MEDS: IRBESARTAN 150 MG TAB PO SCH (09:27)
[2022-07-28] MEDS: LEVETIRACETAM 500MG/5ML VIAL 1,500 MG in SODIUM CHLORIDE 0.9% 100 ML IV SCH (11:10)
[2022-07-28] MEDS ORDERED: DEXTROSE 50% SYRINGE 50 ML IV PRN ×2 (12:00→13:00)
[2022-07-28] MEDS ORDERED: INSULIN GLARGINE 100 UNITS/ML VIAL SQ ONE (12:30)
[2022-07-28] MEDS ORDERED: ALBUTEROL/IPRATROPIUM 3 ML NEB NEB ONE (14:00)
[2022-07-28] MEDS ORDERED: KEPPRA100 MG/1 M IV (14:12)
[2022-07-28] MEDS ORDERED: ONDANSETRON4 MG/2 M1 IV (14:12)
[2022-07-28] MEDS ORDERED: PROTONIX IV40 MG IV (14:12)
[2022-07-28] MEDS ORDERED: HYDRALAZIN20 MG/1 ML IV (14:12)
[2022-07-28] MEDS ORDERED: THIAMINE H100 MG/1 M IV (14:12)
[2022-07-28] MEDS ORDERED: LABETALOL H5 MG/1 ML IV (14:12)
[2022-07-28] MEDS ORDERED: Insulin Lispro SQ (14:12)
[2022-07-28] MEDS ORDERED: NORVASC5 MG PO (14:12)
[2022-07-28] MEDS ORDERED: AVAPRO150 MG PO (14:12)
[2022-07-28] MEDS ORDERED: Albuterol/Ipratropium Nebulize NEB (14:12)
[2022-07-28] MEDS ORDERED: ASCORBIC ACID500 MG PO (14:12)
[2022-07-28] MEDS ORDERED: DEXTROSE 50%-WA50 M1 IV (14:12)
[2022-07-28] MEDS ORDERED: ACETAMINOP325 MG/10 NG (14:12)
[2022-07-28] MEDS ORDERED: Zinc Sulfate PO (14:12)
[2022-07-28 14:17] LABS: ALBUMIN 1.6 g/dL (3.5-5.0); ALBUMIN/GLOBULIN RATIO 0.2 (0.8-2.0); ANION GAP 12.9 mmol/L (8-16); CALCIUM 9.2 mg/dL (8.4-10.2); CREATININE, SERUM 0.7 mg/dL (0.72-1.25); POTASSIUM 4.9 mmol/L (3.5-5.1)
[2022-07-28] MEDS ORDERED: INSULIN REGULAR, HUMAN 3ML VL 100 UNIT in SODIUM CHLORIDE 0.9% 100 ML IV SCH ×2 (14:45)
[2022-07-28] MEDS ORDERED: ALBUTEROL/IPRATROPIUM 3 ML NEB NEB SCH (15:00)
[2022-07-28] MEDS ORDERED: INSULIN REGULAR, HUMAN 100 UNIT/1 ML SQ SCH (16:30)
[2022-07-28] MEDS ORDERED: INSULIN LISPRO 100 UNIT/1 ML 3ML VIAL SQ SCH (16:30)
== END 2022-07-28 16:15 | DRG 871 ==
LOC: ER 12:29 → ERHOLD 15:07 → ICU 20:05
PROVIDERS: ADMIT Internal Medicine; ATTEND Internal Medicine
PROC: 02HV33Z Insertion of Infusion Device into Superior Vena Cava, Percutaneous Approach (ICD-10-PCS; 2022-07-16)
PROC: XW043E5 Introduction of Remdesivir Anti-infective into Central Vein, Percutaneous Approach, New Technology Group 5 (ICD-10-PCS; 2022-07-16)
PROC: 3E04329 Introduction of Other Anti-infective into Central Vein, Percutaneous Approach (ICD-10-PCS; 2022-07-16)
PROC: 3E04329 Introduction of Other Anti-infective into Central Vein, Percutaneous Approach (ICD-10-PCS; 2022-07-16)
PROC: 009U3ZX Drainage of Spinal Canal, Percutaneous Approach, Diagnostic (ICD-10-PCS; principal; 2022-07-17)
PROC: B01BZZZ Fluoroscopy of Spinal Cord (ICD-10-PCS; 2022-07-17)
PROC: 4A00X4Z Measurement of Central Nervous Electrical Activity, External Approach (ICD-10-PCS; 2022-07-17)
PROC: XW043E5 Introduction of Remdesivir Anti-infective into Central Vein, Percutaneous Approach, New Technology Group 5 (ICD-10-PCS; 2022-07-17)
PROC: 3E04329 Introduction of Other Anti-infective into Central Vein, Percutaneous Approach (ICD-10-PCS; 2022-07-17)
PROC: 3E04329 Introduction of Other Anti-infective into Central Vein, Percutaneous Approach (ICD-10-PCS; 2022-07-17)
PROC: 3E04329 Introduction of Other Anti-infective into Central Vein, Percutaneous Approach (ICD-10-PCS; 2022-07-17)
PROC: XW043E5 Introduction of Remdesivir Anti-infective into Central Vein, Percutaneous Approach, New Technology Group 5 (ICD-10-PCS; 2022-07-18)
PROC: 3E04329 Introduction of Other Anti-infective into Central Vein, Percutaneous Approach (ICD-10-PCS; 2022-07-18)
PROC: XW043E5 Introduction of Remdesivir Anti-infective into Central Vein, Percutaneous Approach, New Technology Group 5 (ICD-10-PCS; 2022-07-19)
PROC: 3E04329 Introduction of Other Anti-infective into Central Vein, Percutaneous Approach (ICD-10-PCS; 2022-07-19)
PROC: XW043E5 Introduction of Remdesivir Anti-infective into Central Vein, Percutaneous Approach, New Technology Group 5 (ICD-10-PCS; 2022-07-20)
PROC: 3E04329 Introduction of Other Anti-infective into Central Vein, Percutaneous Approach (ICD-10-PCS; 2022-07-20)
PROC: 3E04329 Introduction of Other Anti-infective into Central Vein, Percutaneous Approach (ICD-10-PCS; 2022-07-21)
PROC: 3E04329 Introduction of Other Anti-infective into Central Vein, Percutaneous Approach (ICD-10-PCS; 2022-07-24)
PROC: 3E04329 Introduction of Other Anti-infective into Central Vein, Percutaneous Approach (ICD-10-PCS; 2022-07-25)
PROC: 3E04329 Introduction of Other Anti-infective into Central Vein, Percutaneous Approach (ICD-10-PCS; 2022-07-26)
PROC: 3E04329 Introduction of Other Anti-infective into Central Vein, Percutaneous Approach (ICD-10-PCS; 2022-07-27)
DX: A40.3 Sepsis due to Streptococcus pneumoniae (principal); G00.1 Pneumococcal meningitis; R65.20 Severe sepsis without septic shock; G93.41 Metabolic encephalopathy; U07.1 COVID-19; J96.01 Acute respiratory failure with hypoxia; R17 Unspecified jaundice; E87.0 Hyperosmolality and hypernatremia; Z68.43 Body mass index [BMI] 50.0-59.9, adult; E11.65 Type 2 diabetes mellitus with hyperglycemia; E88.09 Other disorders of plasma-protein metabolism, not elsewhere classified; E87.6 Hypokalemia; H70.90 Unspecified mastoiditis, unspecified ear; J01.90 Acute sinusitis, unspecified; R16.0 Hepatomegaly, not elsewhere classified; E66.01 Morbid (severe) obesity due to excess calories; I10 Essential (primary) hypertension; Z59.6 Low income; Z63.9 Problem related to primary support group, unspecified; Z79.899 Other long term (current) drug therapy; Z86.69 Personal history of other diseases of the nervous system and sense organs
CPT/HCPCS: 36415; 36569; 36600; 62328; 70450; 70470; 71045; 74018; 74470; 76700; 80053; 80061; 80202; 80307; 80320; 80329; 81001; 82140; 82550; 82553; 82607; 82805; 82945; 82948; 83036; 83605; 83735; 83880; 84100; 84157; 84443; 84484; 85025; 85610; 85730; 86592; 87040; 87070; 87071; 87086; 87186; 87205; 87390; 89051; 93005; 93306; 94640; 94799; 95819; 96372; 99252; 99285; G0433; G0435; J0248; J0360; J0456; J0696; J1100; J1650; J1815; J1817; J1885; J2405; J3370; J3411; J3480; J3486; J7030; J7040; J7050; Q9967